=== PATIENT | female | born 1935 | race African-American/Black ===

== ENCOUNTER → 2016-11-22 | Outpatient (CLI) | payer MEDICARE, OTHER ==
[2016-11-22 13:28] LABS: Basophils # (auto) 0 uL; Basophils % (auto) 0.6 % (0.0-2.0); Eosinophils # (auto) 0.5 uL; Eosinophils % (auto) 6.5 % (0.0-7.0); Hematocrit 34.1 % (36.0-46.0); Hemoglobin 11.1 g/dL (12.2-16.2); Lymphocytes # (auto) 1.6 uL; Lymphocytes % (auto) 20.8 % (10.0-50.0); Mean Corpuscular Hemoglobin 28.5 pg (28.0-32.0); Mean Corpuscular Hgb Conc. 32.5 g/dL (32.0-36.0); Mean Corpuscular Volume 87.8 fL (80.0-100.0); Monocytes # (auto) 0.6 uL; Monocytes % (auto) 7.6 % (0.0-12.0); Neutrophils % (auto) 64.5 % (37.0-80.0); Platelet Count (auto) 264 10^3/uL (140-450); Red Cell Distribution Width 15.9 % (11.6-16.0); White Blood Cell 7.8 10^3/uL (4.4-10.8)
[2016-11-22 13:53] LABS: Albumin 3.5 g/dL (3.4-5.0); BUN/Creatinine Ratio 16.2; Bilirubin, Total 0.4 mg/dL (0.2-1.0); Calcium 8.6 mg/dL (8.5-10.1); Potassium 3.5 mmol/L (3.5-5.1); Total Protein 7.1 g/dL (6.4-8.2)
== END | disposition home or self-care (01) ==
LOC: LAB 12:58
DX: D64.9 Anemia, unspecified (principal); I10 Essential (primary) hypertension; M06.9 Rheumatoid arthritis, unspecified; M25.50 Pain in unspecified joint
CPT/HCPCS: 36415; 80053; 85025; 85652; 86141

== ENCOUNTER 2018-02-24 17:58 | Inpatient (IN) | payer MEDICARE, OTHER ==
[~2018-02-24] VITALS: Ht 165.1 cm; Wt 80.4 kg
[2018-02-24] MEDS ORDERED: ACETAMINOPHEN 650 mg PER 20 mL UD GT ONE (18:30)
[2018-02-24] MEDS ORDERED: ACETAMINOPHEN 650 mg PER 20 mL UD ONE (18:30)
[2018-02-24 18:37] LABS: Basophils # (auto) 0 uL; Basophils % (auto) 0.2 % (0.0-2.0); Eosinophils # (auto) 0.1 uL; Eosinophils % (auto) 0.8 % (0.0-7.0); Hemoglobin 11.4 g/dL (12.2-16.2); Lymphocytes # (auto) 1.3 uL; Lymphocytes % (auto) 9.6 % (10.0-50.0); Mean Corpuscular Hemoglobin 28.3 pg (28.0-32.0); Mean Corpuscular Hgb Conc. 31.8 g/dL (32.0-36.0); Mean Corpuscular Volume 89.1 fL (80.0-100.0); Monocytes # (auto) 0.4 uL; Monocytes % (auto) 3.2 % (0.0-12.0); Neutrophils # (auto) 11.4 uL; Neutrophils % (auto) 86.2 % (37.0-80.0); Platelet Count (auto) 227 10^3/uL (140-450); Red Blood Cells 4.04 10^6/uL (4.0-5.20); Red Cell Distribution Width 17.1 % (11.8-14.3); White Blood Cell 13.2 10^3/uL (4.4-10.8)
[2018-02-24] MEDS ORDERED: SODIUM CHLORIDE 0.9% 1,000 ML IVB ONE (18:44)
[2018-02-24 18:58] LABS: Alanine Aminotransferase 33 U/L (13-56); Albumin 3.6 g/dL (3.4-5.0); Alkaline Phosphatase 101 U/L (45-117); Anion Gap 9 (5-15); Aspartate Aminotransferase 25 U/L (15-37); BUN/Creatinine Ratio 17.6; Bilirubin, Total 0.7 mg/dL (0.2-1.0); Blood Urea Nitrogen 22 mg/dL (7-18); Calcium 8.6 mg/dL (8.5-10.1); Carbon Dioxide 24 mmol/L (21-32); Chloride 108 mmol/L (98-107); GFR African American 53 mL/min; GFR Non-African American 44 mL/min; Glucose 155 mg/dL (74-106); Potassium 3.4 mmol/L (3.5-5.1); Sodium 141 mmol/L (136-145); Total Protein 7.3 g/dL (6.4-8.2)
[2018-02-24 18:59] LABS: Lactic Acid w/Reflex 2.3 mmol/L (0.4-2.0)
[2018-02-24 19:09] LABS: INR 1.02 (0.9-1.15); Partial Thromboplastin Time 24.3 sec (23.78-33.04); Prothrombin Time 10.9 sec (9.27-12.13)
[2018-02-24] MEDS ORDERED: SODIUM CHLORIDE 0.9% 1,000 ML IV ONE (19:30)
[2018-02-24] MEDS ORDERED: cefTRIAXone 1GM/10ml IVPUSH 10 ML IV ONE (19:30)
[2018-02-24] MEDS ORDERED: ACETAMINOPHEN 325 MG TAB PO ONE (20:00)
[2018-02-24 21:11] LABS: Urine Bacteria NONE SEEN /hpf (None Seen); Urine Blood Negative /uL (Negative); Urine Mucus FEW (None Seen); Urine Specific Gravity 1.019 (1.001-1.035); Urine WBC 1 /hpf (0 - 5)
[2018-02-24] MEDS ORDERED: AZITHROMYCIN 500MG/ 250ML 250 ML IV ONE (21:30)
[2018-02-24] MEDS ORDERED: MORPHINE SULFATE 8mg/ml INJ SDV IV PRN (21:45)
[2018-02-24] MEDS ORDERED: POTASSIUM CHL 20 Meq TABLET PO ONE (21:45)
[2018-02-24] MEDS ORDERED: NITROGLYCERIN 0.4 MG SL TAB SL PRN (21:45)
[2018-02-24] MEDS ORDERED: ONDANSETRON HCL 4 MG/2 ML VIAL IV PRN (21:45)
[2018-02-24] MEDS ORDERED: TEMAZEPAM 15 MG CAP PO PRN (21:45)
[2018-02-24] MEDS: SODIUM CHLORIDE 0.9% 1,000 ML IV SCH (22:26)
[2018-02-24] MEDS: PRAVASTATIN SODIUM 20 MG TAB PO SCH (22:31)
[2018-02-24] MEDS: FAMOTIDINE 20 MG TAB PO SCH (22:35)
[2018-02-24] MEDS: ACETAMINOPHEN 325 MG TAB PO PRN (23:03)
[2018-02-24 23:15] VITALS: BP 106/55
[2018-02-25] MEDS: ACETAMINOPHEN 325 MG TAB PO PRN (04:49)
[2018-02-25 05:00] VITALS: BP 122/55
[2018-02-25 06:23] LABS: Basophils # (auto) 0 uL; Basophils % (auto) 0.2 % (0.0-2.0); Eosinophils # (auto) 0.2 uL; Hematocrit 31.9 % (36.0-46.0); Hemoglobin 10.2 g/dL (12.2-16.2); Lymphocytes # (auto) 1.3 uL; Lymphocytes % (auto) 11.4 % (10.0-50.0); Mean Corpuscular Hemoglobin 28.7 pg (28.0-32.0); Mean Corpuscular Hgb Conc. 31.9 g/dL (32.0-36.0); Monocytes # (auto) 0.4 uL; Monocytes % (auto) 3.2 % (0.0-12.0); Neutrophils # (auto) 9.4 uL; Neutrophils % (auto) 83.2 % (37.0-80.0); Nucleated Red Blood Cells % 0.1 %; Platelet Count (auto) 195 10^3/uL (140-450); Red Blood Cells 3.55 10^6/uL (4.0-5.20); Red Cell Distribution Width 17.2 % (11.8-14.3); White Blood Cell 11.3 10^3/uL (4.4-10.8)
[2018-02-25 06:42] LABS: Albumin 2.8 g/dL (3.4-5.0); BUN/Creatinine Ratio 16.7; Bilirubin, Total 0.6 mg/dL (0.2-1.0); Calcium 7.6 mg/dL (8.5-10.1); Potassium 3.6 mmol/L (3.5-5.1); Total Protein 5.8 g/dL (6.4-8.2)
[2018-02-25] MEDS: AZITHROMYCIN 500MG/ 250ML 250 ML IV SCH (09:19)
[2018-02-25] MEDS: cefTRIAXone 1GM/10ml IVPUSH 10 ML IV SCH (09:19)
[2018-02-25] MEDS: LOSARTAN POTASSIUM 25 MG TAB PO SCH (09:20)
[2018-02-25] MEDS: FAMOTIDINE 20 MG TAB PO SCH ×2 (09:20→21:46)
[2018-02-25] MEDS: POTASSIUM CHL 10 Meq TABLET PO SCH (09:21)
[2018-02-25] MEDS: FUROSEMIDE 40 MG TAB PO SCH (09:21)
[2018-02-25] MEDS: ENOXAPARIN SOD 40 MG/0.4 ML SYRINGE SC SCH (09:22)
[2018-02-25 09:28] VITALS: BP_SYST 134; BP_SYST 96; BP_DIAS 58; BP_DIAS 77
[2018-02-25] MEDS: SODIUM CHLORIDE 0.9% 1,000 ML IV SCH (09:28)
[2018-02-25] MEDS ORDERED: FURO40TA4 PO (09:39)
[2018-02-25] MEDS ORDERED: PRAV20TA3 PO (09:39)
[2018-02-25] MEDS ORDERED: ACET-1156 PO (09:39)
[2018-02-25] MEDS ORDERED: GABA100C9 PO (09:39)
[2018-02-25] MEDS ORDERED: METH2.5T3 PO (09:39)
[2018-02-25] MEDS ORDERED: OMEP20TA PO (09:39)
[2018-02-25] MEDS ORDERED: FEXO-42 PO (09:39)
[2018-02-25] MEDS ORDERED: BIOT300T2 PO (09:39)
[2018-02-25] MEDS ORDERED: HYDR25TA4 PO (09:39)
[2018-02-25] MEDS ORDERED: MULTTAB61 PO (09:39)
[2018-02-25] MEDS ORDERED: PRE5T PO (09:39)
[2018-02-25] MEDS ORDERED: LOSA25TA9 PO (09:39)
[2018-02-25] MEDS ORDERED: FOLI1TAB6 PO (09:39)
[2018-02-25] MEDS: HYDROcodone-ACET 5/325MG TAB PO PRN ×2 (10:49→22:00)
[2018-02-25 13:57] VITALS: BP 93/40
[2018-02-25 17:17] VITALS: BP 125/88
[2018-02-25] MEDS: IPRATROPIUM BROM 0.5 MG/2.5ML INH SOL NEB SCH ×2 (18:31→19:47)
[2018-02-25] MEDS: ALBUTEROL SULF 2.5 MG/0.5ML(0.5%) NEB SOLN NEB SCH ×2 (18:31→19:47)
[2018-02-25] MEDS: PRAVASTATIN SODIUM 20 MG TAB PO SCH (21:46)
[2018-02-25 22:52] VITALS: BP 125/88
[2018-02-25 23:46] VITALS: BP 125/64
[2018-02-26] MEDS: SODIUM CHLORIDE 0.9% 1,000 ML IV SCH (00:10)
[2018-02-26 05:16] VITALS: BP 118/57
[2018-02-26] MEDS: ALBUTEROL SULF 2.5 MG/0.5ML(0.5%) NEB SOLN NEB SCH ×3 (06:00→19:17)
[2018-02-26] MEDS: IPRATROPIUM BROM 0.5 MG/2.5ML INH SOL NEB SCH ×3 (06:00→19:17)
[2018-02-26 09:00] VITALS: BP 119/59
[2018-02-26] MEDS: FUROSEMIDE 40 MG TAB PO SCH (09:26)
[2018-02-26] MEDS: POTASSIUM CHL 10 Meq TABLET PO SCH (09:27)
[2018-02-26] MEDS: LOSARTAN POTASSIUM 25 MG TAB PO SCH (09:28)
[2018-02-26] MEDS: cefTRIAXone 1GM/10ml IVPUSH 10 ML IV SCH (09:29)
[2018-02-26] MEDS: AZITHROMYCIN 500MG/ 250ML 250 ML IV SCH (09:29)
[2018-02-26] MEDS: FAMOTIDINE 20 MG TAB PO SCH ×2 (09:29→22:05)
[2018-02-26] MEDS: ENOXAPARIN SOD 40 MG/0.4 ML SYRINGE SC SCH (09:31)
[2018-02-26] MEDS: HYDROcodone-ACET 5/325MG TAB PO PRN ×2 (10:36→18:17)
[2018-02-26 13:00] VITALS: BP 116/67
[2018-02-26 17:00] VITALS: BP 117/68
[2018-02-26 21:36] VITALS: BP 93/58
[2018-02-26] MEDS: PRAVASTATIN SODIUM 20 MG TAB PO SCH (22:05)
[2018-02-27] MEDS: ALBUTEROL SULF 2.5 MG/0.5ML(0.5%) NEB SOLN NEB SCH ×3 (00:48→11:55)
[2018-02-27] MEDS: IPRATROPIUM BROM 0.5 MG/2.5ML INH SOL NEB SCH ×3 (00:48→11:55)
[2018-02-27 05:03] VITALS: BP 107/60
[2018-02-27 09:00] VITALS: BP 111/52
[2018-02-27] MEDS: HYDROcodone-ACET 5/325MG TAB PO PRN (09:05)
[2018-02-27] MEDS: cefTRIAXone 1GM/10ml IVPUSH 10 ML IV SCH (09:06)
[2018-02-27] MEDS: FUROSEMIDE 40 MG TAB PO SCH (10:00)
[2018-02-27] MEDS: LOSARTAN POTASSIUM 25 MG TAB PO SCH (10:00)
[2018-02-27] MEDS: AZITHROMYCIN 500MG/ 250ML 250 ML IV SCH (10:52)
[2018-02-27] MEDS: FAMOTIDINE 20 MG TAB PO SCH (10:54)
[2018-02-27] MEDS: POTASSIUM CHL 10 Meq TABLET PO SCH (10:54)
[2018-02-27] MEDS: ENOXAPARIN SOD 40 MG/0.4 ML SYRINGE SC SCH (10:54)
[2018-02-27] MEDS ORDERED: BOOST PLUS 8 ounce PO SCH (12:00)
[2018-02-27 12:58] VITALS: BP 120/61
[2018-02-27] MEDS ORDERED: AZIT500T4 PO (13:14)
[2018-02-27] MEDS ORDERED: AMOX-263 PO (13:14)
[2018-02-27 15:24] VITALS: BP 120/61
== END 2018-02-27 16:36 | disposition home or self-care (01) | DRG 871 ==
LOC: EDUNIT# 17:58 → EDBD 17:58 → ER 18:01 → TELE 18:02 → TELE-WESTW 23:11 → WEST WING 02-25 22:09
PROVIDERS: ADMIT Nurse Practitioner; ATTEND Internal Medicine
DX: A41.9 Sepsis, unspecified organism (principal); N17.0 Acute kidney failure with tubular necrosis; E44.0 Moderate protein-calorie malnutrition; G62.9 Polyneuropathy, unspecified; J18.1 Lobar pneumonia, unspecified organism; I13.0 Hypertensive heart and chronic kidney disease with heart failure and stage 1 through stage 4 chronic kidney disease, or unspecified chronic kidney disease; J44.9 Chronic obstructive pulmonary disease, unspecified; N18.3 Chronic kidney disease, stage 3 (moderate); E87.6 Hypokalemia; G47.00 Insomnia, unspecified; E78.5 Hyperlipidemia, unspecified; R01.1 Cardiac murmur, unspecified; F19.90 Other psychoactive substance use, unspecified, uncomplicated; K21.9 Gastro-esophageal reflux disease without esophagitis; Z82.49 Family history of ischemic heart disease and other diseases of the circulatory system; Z68.29 Body mass index [BMI] 29.0-29.9, adult
CPT/HCPCS: 36415; 51702; 71045; 71046; 80053; 81001; 83605; 83735; 83880; 84484; 85025; 85610; 85730; 87040; 87070; 87205; 93005; 94640; 94761; 96361; 96374; 96375; J2405

== ENCOUNTER 2018-12-14 18:22 | Inpatient (IN) | payer MEDICARE, OTHER ==
[~2018-12-14] VITALS: Ht 160 cm; Wt 89.4 kg
[~2018-12-14 18:22] MED LIST: ACET-1156 PO; AMOX-263 PO; AZIT500T4 PO; BIOT300T2 PO; FEXO-42 PO; FOLI1TAB6 PO; FURO40TA4 PO; GABA100C9 PO; HYDR25TA4 PO; LOSA25TA40 PO; METH2.5T3 PO; MULTTAB61 PO; OMEP20TA PO; PRAV20TA3 PO; PRE5T PO
[2018-12-14] MEDS ORDERED: SODIUM CHLORIDE 0.9% 1,000 ML IVB ONE (20:12)
[2018-12-14 20:31] LABS: Basophils # (auto) 0 uL; Basophils % (auto) 0.2 % (0.0-2.0); Eosinophils # (auto) 0.1 uL; Eosinophils % (auto) 1.3 % (0.0-7.0); Hematocrit 36.1 % (36.0-46.0); Hemoglobin 11.7 g/dL (12.2-16.2); Lymphocytes # (auto) 1.2 uL; Lymphocytes % (auto) 14.6 % (10.0-50.0); Mean Corpuscular Hemoglobin 28.4 pg (28.0-32.0); Mean Corpuscular Hgb Conc. 32.3 g/dL (32.0-36.0); Mean Corpuscular Volume 87.7 fL (80.0-100.0); Monocytes # (auto) 0.3 uL; Monocytes % (auto) 3.3 % (0.0-12.0); Neutrophils # (auto) 6.7 uL; Neutrophils % (auto) 80.6 % (37.0-80.0); Platelet Count (auto) 223 10^3/uL (140-450); Red Blood Cells 4.12 10^6/uL (4.0-5.20); Red Cell Distribution Width 15.5 % (11.8-14.3); White Blood Cell 8.3 10^3/uL (4.4-10.8)
[2018-12-14 20:39] LABS: Alanine Aminotransferase 29 U/L (13-56); Albumin 3.4 g/dL (3.4-5.0); Anion Gap 7 (5-15); Aspartate Aminotransferase 29 U/L (15-37); Blood Urea Nitrogen 18 mg/dL (7-18); Calcium 8.5 mg/dL (8.5-10.1); Carbon Dioxide 25 mmol/L (21-32); Chloride 104 mmol/L (98-107); Glucose 133 mg/dL (74-106); Magnesium 2.1 mg/dL (1.6-2.6); Potassium 3.5 mmol/L (3.5-5.1); Sodium 136 mmol/L (136-145)
[2018-12-14 20:41] LABS: Lactic Acid w/Reflex 2.2 mmol/L (0.4-2.0)
[2018-12-14 20:43] LABS: Alkaline Phosphatase 116 U/L (45-117); BUN/Creatinine Ratio 14.4; Bilirubin, Total 0.4 mg/dL (0.2-1.0); GFR African American 53 mL/min; GFR Non-African American 44 mL/min; Total Protein 7.9 g/dL (6.4-8.2)
[2018-12-14] MEDS ORDERED: SODIUM CHLORIDE 0.9% 500 ML IV ONE (21:00)
[2018-12-14 22:38] LABS: INR 1.04 (0.9-1.15); Partial Thromboplastin Time 27.3 sec (23.78-33.04); Prothrombin Time 11.1 sec (9.27-12.13)
[2018-12-14 22:40] LABS: Fibrinogen 396.5 mg/dL (177-375)
[2018-12-14 22:51] LABS: Urine Bacteria NONE SEEN /hpf (None Seen); Urine Blood Negative /uL (Negative); Urine Specific Gravity 1.022 (1.001-1.035); Urine WBC 2 /hpf (0 - 5)
[2018-12-15 01:02] LABS: Lactic Acid w/Reflex 2.3 mmol/L (0.4-2.0)
[2018-12-15] MEDS ORDERED: VANCOMYCIN 1GM/250ML 250 ML IV ONE (02:15)
[2018-12-15] MEDS ORDERED: PIPERACILLIN-TAZOB 3.375GM 100 ML IV ONE (02:15)
[2018-12-15] MEDS ORDERED: SODIUM CHLORIDE 0.9% 1,000 ML IV ONE (03:30)
[2018-12-15] MEDS ORDERED: methylPREDNISolone SOD SUCC 125 MG/2 ML VL IV ONE (06:00)
[2018-12-15] MEDS ORDERED: ACETAMINOPHEN 500 MG TAB PO PRN (06:00)
[2018-12-15] MEDS ORDERED: NITROGLYCERIN 0.4 MG SL TAB SL PRN (06:00)
[2018-12-15] MEDS ORDERED: MORPHINE SULF INJ 2 MG/ML SYRINGE 1ML IV PRN ×2 (06:00)
[2018-12-15] MEDS ORDERED: ONDANSETRON HCL 4 MG/2 ML VIAL IV PRN (06:00)
[2018-12-15] MEDS ORDERED: VANCOMYCIN PER PHARMACY 0 MG IV SCH (06:00)
[2018-12-15] MEDS: SODIUM CHLORIDE 0.9% 1,000 ML IV SCH ×2 (06:17→16:41)
[2018-12-15] MEDS: ALBUTEROL SULF 2.5 MG/0.5ML(0.5%) NEB SOLN NEB SCH ×3 (06:24→18:17)
[2018-12-15] MEDS: IPRATROPIUM BROM 0.5 MG/2.5ML INH SOL NEB SCH ×3 (06:24→18:17)
[2018-12-15] MEDS: ENSURE CLEAR Mixed Berry 8oz Carton PO SCH ×3 (08:00→18:02)
[2018-12-15] MEDS ORDERED: AZITHROMYCIN 500MG/ 250ML 250 ML IV SCH ×2 (08:00→10:00)
[2018-12-15] MEDS: AZITHROMYCIN 500MG/ 250ML 250 ML IV SCH (08:36)
[2018-12-15] MEDS: PANTOPRAZOLE 40 MG/10 ML VIAL IV SCH (09:17)
[2018-12-15] MEDS: MULTIPLE VITAMIN TAB PO SCH (09:17)
[2018-12-15] MEDS ORDERED: methylPREDNISolone SOD SUCC 40 MG/ML VL IV SCH (10:00)
[2018-12-15] MEDS: cefTRIAXone 1GM/50ML D5W 50 ML IV SCH (10:35)
[2018-12-15 10:51] LABS: Potassium 3.2 mmol/L (3.5-5.1)
[2018-12-15 11:00] LABS: Albumin 2.8 g/dL (3.4-5.0); BUN/Creatinine Ratio 14.4; Bilirubin, Total 0.7 mg/dL (0.2-1.0); Calcium 7.7 mg/dL (8.5-10.1)
[2018-12-15] MEDS: BUDESONIDE (INHALATION) 0.5 MG/2 ML NEB NEB SCH ×2 (11:22→18:17)
[2018-12-15] MEDS: methylPREDNISolone SOD SUCC 125 MG/2 ML VL IV SCH ×2 (14:59→21:42)
[2018-12-15] MEDS: HYDROcodone-ACET 5/325MG TAB PO PRN (17:37)
[2018-12-15] MEDS: VANCOMYCIN 1,250 MG in D5W 5% 250 ML IV SCH (19:56)
[2018-12-16] MEDS: ALBUTEROL SULF 2.5 MG/0.5ML(0.5%) NEB SOLN NEB SCH ×5 (01:21→20:01)
[2018-12-16] MEDS: IPRATROPIUM BROM 0.5 MG/2.5ML INH SOL NEB SCH ×5 (01:21→20:01)
[2018-12-16] MEDS: SODIUM CHLORIDE 0.9% 1,000 ML IV SCH ×2 (02:00→09:30)
[2018-12-16] MEDS: methylPREDNISolone SOD SUCC 125 MG/2 ML VL IV SCH ×3 (05:41→22:00)
[2018-12-16 06:08] LABS: Basophils # (auto) 0 uL; Basophils % (auto) 0.1 % (0.0-2.0); Eosinophils # (auto) 0 uL; Hematocrit 32.6 % (36.0-46.0); Hemoglobin 10.6 g/dL (12.2-16.2); Lymphocytes % (auto) 5.5 % (10.0-50.0); Mean Corpuscular Hemoglobin 28.3 pg (28.0-32.0); Mean Corpuscular Hgb Conc. 32.4 g/dL (32.0-36.0); Mean Corpuscular Volume 87.6 fL (80.0-100.0); Monocytes # (auto) 0.3 uL; Monocytes % (auto) 1.9 % (0.0-12.0); Neutrophils # (auto) 16.6 uL; Neutrophils % (auto) 92.5 % (37.0-80.0); Nucleated Red Blood Cells % 0.1 %; Platelet Count (auto) 190 10^3/uL (140-450); Red Blood Cells 3.73 10^6/uL (4.0-5.20); Red Cell Distribution Width 15.9 % (11.8-14.3); White Blood Cell 17.9 10^3/uL (4.4-10.8)
[2018-12-16 06:32] LABS: Albumin 2.6 g/dL (3.4-5.0); BUN/Creatinine Ratio 16.5; Calcium 7.3 mg/dL (8.5-10.1); Potassium 3.1 mmol/L (3.5-5.1)
[2018-12-16 06:35] LABS: Bilirubin, Total 0.3 mg/dL (0.2-1.0); Total Protein 6.5 g/dL (6.4-8.2)
[2018-12-16] MEDS ORDERED: POTASSIUM CHL 20 Meq TABLET PO ONE (07:30)
[2018-12-16] MEDS: ENSURE CLEAR Mixed Berry 8oz Carton PO SCH ×3 (08:20→18:24)
[2018-12-16] MEDS: MULTIPLE VITAMIN TAB PO SCH (08:28)
[2018-12-16] MEDS: PANTOPRAZOLE 40 MG/10 ML VIAL IV SCH (08:28)
[2018-12-16] MEDS: AZITHROMYCIN 500MG/ 250ML 250 ML IV SCH (08:28)
[2018-12-16] MEDS: cefTRIAXone 1GM/50ML D5W 50 ML IV SCH (09:30)
[2018-12-16] MEDS: BUDESONIDE (INHALATION) 0.5 MG/2 ML NEB NEB SCH ×2 (10:07→18:49)
[2018-12-16] MEDS ORDERED: METHOTREXATE 2.5 MG TAB PO SCH (12:45)
[2018-12-16] MEDS ORDERED: DEXTROSE (50%) 50ML SYRG IV PRN (13:00)
[2018-12-16] MEDS ORDERED: POTASSIUM CHL 10 Meq TABLET PO ONE (13:00)
[2018-12-16] MEDS ORDERED: FUROSEMIDE 40 MG/4 ML VIAL IV ONE (13:00)
[2018-12-16] MEDS: HYDROcodone-ACET 5/325MG TAB PO PRN (16:22)
[2018-12-16] MEDS: InsuLIN REG 1unit/0.01ml Soln (100units/ml) SC SCH ×2 (16:48→22:00)
[2018-12-16] MEDS: ACCU-CHEK COMFORT CURVE STRIP VI SCH ×2 (16:48→22:00)
[2018-12-16] MEDS: VANCOMYCIN 1,250 MG in D5W 5% 250 ML IV SCH (20:09)
[2018-12-16 22:04] VITALS: BP_SYST 115; BP_SYST 121; BP_DIAS 67; BP_DIAS 70
--- NOTE | 2018-12-16 22:04 | NUR ---
Telemetry admit from ER YADIEL LOOMIS admitted to Telemetry unit after SBAR received. Patient oriented to Ana Paula Peters, primary RN, unit, room, bed, and unit policies regarding patient care and visiting hours. Patient now on continuous telemetry monitoring, tele box 25# and telemetry reading on arrival to unit is NSR 82. PatiENT, weighed by bedscale and encouraged to call if they need something. All questions and concerns addressed, patient verbalized understanding. Note:
[2018-12-17] MEDS ORDERED: TEMAZEPAM 15 MG CAP PO ONE (00:45)
[2018-12-17 04:57] VITALS: BP 120/68
[2018-12-17] MEDS: methylPREDNISolone SOD SUCC 125 MG/2 ML VL IV SCH ×2 (05:37→14:00)
[2018-12-17] MEDS: IPRATROPIUM BROM 0.5 MG/2.5ML INH SOL NEB SCH ×2 (05:44→11:53)
[2018-12-17] MEDS: BUDESONIDE (INHALATION) 0.5 MG/2 ML NEB NEB SCH (05:44)
[2018-12-17] MEDS: ALBUTEROL SULF 2.5 MG/0.5ML(0.5%) NEB SOLN NEB SCH ×2 (05:44→11:53)
[2018-12-17 06:18] LABS: Basophils # (auto) 0 uL; Eosinophils # (auto) 0 uL; Hematocrit 30.7 % (36.0-46.0); Hemoglobin 10.1 g/dL (12.2-16.2); Lymphocytes # (auto) 1.4 uL; Lymphocytes % (auto) 6.9 % (10.0-50.0); Mean Corpuscular Hemoglobin 28.5 pg (28.0-32.0); Mean Corpuscular Hgb Conc. 32.9 g/dL (32.0-36.0); Mean Corpuscular Volume 86.8 fL (80.0-100.0); Monocytes # (auto) 0.6 uL; Monocytes % (auto) 2.9 % (0.0-12.0); Neutrophils # (auto) 18.3 uL; Neutrophils % (auto) 90.2 % (37.0-80.0); Platelet Count (auto) 206 10^3/uL (140-450); Red Blood Cells 3.54 10^6/uL (4.0-5.20); Red Cell Distribution Width 15.8 % (11.8-14.3); White Blood Cell 20.3 10^3/uL (4.4-10.8)
[2018-12-17] MEDS: InsuLIN REG 1unit/0.01ml Soln (100units/ml) SC SCH ×2 (06:25→11:30)
[2018-12-17] MEDS: ACCU-CHEK COMFORT CURVE STRIP VI SCH ×2 (06:26→15:11)
--- NOTE | 2018-12-17 06:31 | NUR ---
PT REFUSING SOLUMEDROL AND INSULIN;WILL CONTINUE TO MONITOR.
[2018-12-17 06:34] LABS: Albumin 2.5 g/dL (3.4-5.0); BUN/Creatinine Ratio 22.9; Calcium 7.1 mg/dL (8.5-10.1)
[2018-12-17 06:37] LABS: Bilirubin, Total 0.2 mg/dL (0.2-1.0); Total Protein 6.3 g/dL (6.4-8.2)
--- NOTE | 2018-12-17 07:20 | NUR ---
Open Shift Note Received report on patient, awake and sitting on side of bed. Patient shows no signs of distress at this time. Discussed POC. Bed in lowest locked position, side rails up x2, and call light within reach. Patient states will be here soon to bring patient's walker and take her home medications back home. Will continue to monitor.
[2018-12-17 08:00] VITALS: BP 121/58
[2018-12-17] MEDS: ENSURE CLEAR Mixed Berry 8oz Carton PO SCH ×2 (08:42→12:00)
[2018-12-17] MEDS: HYDROcodone-ACET 5/325MG TAB PO PRN (08:43)
[2018-12-17] MEDS: AZITHROMYCIN 500MG/ 250ML 250 ML IV SCH (08:43)
--- NOTE | 2018-12-17 09:40 | NUR ---
Dr Daily at Bedside Dr Daily at patient bedside.
[2018-12-17] MEDS ORDERED: POTASSIUM EFFERVESENT TAB 25 MEQ PO ONE (09:45)
[2018-12-17] MEDS: cefTRIAXone 1GM/50ML D5W 50 ML IV SCH (10:00)
[2018-12-17] MEDS ORDERED: FUROSEMIDE 40 MG/4 ML VIAL IV SCH (10:00)
[2018-12-17] MEDS ORDERED: POTASSIUM CHL 10 Meq TABLET PO SCH (10:00)
[2018-12-17 10:52] VITALS: BP 115/70
[2018-12-17] MEDS: PANTOPRAZOLE 40 MG/10 ML VIAL IV SCH (11:00)
[2018-12-17] MEDS: MULTIPLE VITAMIN TAB PO SCH (11:02)
[2018-12-17 13:00] VITALS: BP 131/74
--- NOTE | 2018-12-17 14:00 | NUR ---
Discharged Discharge instructions given as ordered. Encourage to follow up with PMD as instructed. All questions and concerns addressed. Patient verbalized understanding. Medication reconciliation form completed and copy given to patient. IV removed with catheter intact, pressure dressing applied, escobedo catheter removed. Telemetry unit returned to ICU. Patient taken to vehicle via wheelchair with all personal belongings, accompanied by staff and family member. No distress noted at time of departure.
[2018-12-23] MEDS ORDERED: METHOTREXATE 2.5 MG TAB PO SCH (10:00)
== END 2018-12-17 14:00 | disposition home or self-care (01) | DRG 871 ==
LOC: ER 18:22 → EDBD 18:22 → TELE 12-15 05:42 → TELE-CENTR 12-16 22:04
PROVIDERS: ADMIT Nurse Practitioner Acute Care; ATTEND Internal Medicine
DX: A41.9 Sepsis, unspecified organism (principal); I50.43 Acute on chronic combined systolic (congestive) and diastolic (congestive) heart failure; E44.0 Moderate protein-calorie malnutrition; I13.0 Hypertensive heart and chronic kidney disease with heart failure and stage 1 through stage 4 chronic kidney disease, or unspecified chronic kidney disease; J45.901 Unspecified asthma with (acute) exacerbation; N18.3 Chronic kidney disease, stage 3 (moderate); M81.0 Age-related osteoporosis without current pathological fracture; Z87.01 Personal history of pneumonia (recurrent); E87.6 Hypokalemia; K21.9 Gastro-esophageal reflux disease without esophagitis; D64.9 Anemia, unspecified; E78.5 Hyperlipidemia, unspecified; J20.9 Acute bronchitis, unspecified; Z96.611 Presence of right artificial shoulder joint; E11.21 Type 2 diabetes mellitus with diabetic nephropathy; M06.9 Rheumatoid arthritis, unspecified; E11.42 Type 2 diabetes mellitus with diabetic polyneuropathy; Z79.899 Other long term (current) drug therapy; Z82.3 Family history of stroke; Z82.49 Family history of ischemic heart disease and other diseases of the circulatory system; Z83.3 Family history of diabetes mellitus; Z68.34 Body mass index [BMI] 34.0-34.9, adult
CPT/HCPCS: 36415; 36600; 51702; 70450; 71045; 80053; 81001; 82553; 82805; 82962; 83036; 83605; 83735; 83880; 84484; 85025; 85384; 85610; 85730; 86850; 86900; 86901; 87040; 87081; 87086; 87804; 93306; 94640; 96361; 96365; 96367; 96375; A6257; C9113; G0378; J0696; J1815; J2543; J7060